=== PATIENT | female | born 1960 | race Caucasian/White ===

== ENCOUNTER 2016-09-18 10:06 | Emergency (ER) | payer OTHER ==
[~2016-09-18] VITALS: Ht 165.1 cm; Wt 81.6 kg
[2016-09-18] MEDS ORDERED: ALPRAZOLAM1 M2 PO (11:17)
[2016-09-18] MEDS ORDERED: POTASSIUM CHLO10 ME4 PO (11:17)
[2016-09-18] MEDS ORDERED: FENTANYL1 EAC3 TOP (11:18)
[2016-09-18] MEDS ORDERED: DULOXETINE HCL30 MG PO (11:18)
[2016-09-18] MEDS ORDERED: LEVOTHYROXINE175 MCG PO (11:18)
[2016-09-18] MEDS ORDERED: PRAVASTATIN SOD20 M2 PO (11:18)
[2016-09-18] MEDS ORDERED: ADVAIR 250-501 EACH INH (11:19)
[2016-09-18] MEDS ORDERED: OXYCODONE HCL E20 MG PO ×2 (11:19→12:08)
[2016-09-18] MEDS ORDERED: METOPROLOL SUCC50 M2 PO (11:19)
[2016-09-18] MEDS ORDERED: LISINOPRIL40 M1 PO (11:19)
[2016-09-18] MEDS ORDERED: PROAIR HFA8.5 GM INH (11:20)
[2016-09-18] MEDS ORDERED: LYRICA150 M1 PO (11:20)
--- NOTE | 2016-09-18 11:42 | ED UPPER/LOWER EXTREMITY COMPL ---
History of Present Illness General Chief Complaint: Lower Extremity Problems Stated Complaint: RT ANKLE PAIN, LT KNEE PAIN Source: patient, family, old records Exam Limitations: no limitations Vital Signs & Intake/Output Vital Signs & Intake/Output Vital Signs Date Time Temp Pulse Resp B/P B/P Pulse O2 O2 Flow FiO2 Mean Ox Delivery Rate 09/18 1011 97.7 69 20 148/86 94 Room Air Allergies Coded Allergies: codeine (ITCHING 09/18/16) Reconcile Medications Albuterol Sulfate (Proair Hfa) 90 MCG HFA.AER.AD 2 PUF INH Q4-6 PRN PRN SHORTNESS OF BREATH (Reported) Alprazolam 1 MG TABLET 1 TAB PO 4 TIMES/DAY ANXIETY (Reported) Aspirin (Aspirin*) 325 MG TABLET 1 TAB PO DAILY HEART HEALTH (Reported) Duloxetine HCl 30 MG CAPSULE.DR 1 CAP PO BID UNKNOWN (Reported) Fentanyl 50 MCG/HOUR PATCH.TD72 1 PAT TOP Q3D PAIN (Reported) Fluticasone/Salmeterol (Advair 250-50 Diskus) 250 MCG-50 MCG/DOSE BLST.W.DEV 1 PUF INH BID BREATHING PROBLEMS (Reported) Levothyroxine Sodium 175 MCG TABLET 1 TAB PO DAILY AC THYROID (Reported) Lisinopril 40 MG TABLET 1 TAB PO DAILY HEART (Reported) Metoprolol Succinate 50 MG TAB.ER.24H 1 TAB PO DAILY HEART (Reported) Oxycodone HCl (Oxycodone HCl ER) 20 MG TAB.ER.12H 1 TAB PO BID PAIN (Reported ) Oxycodone HCl (Oxycodone HCl ER) 20 MG TAB.ER.12H 1 TAB PO BID pain Potassium Chloride 10 MEQ TABLET.ER 1 TAB PO DAILY SUPPLEMENT (Reported) Pravastatin Sodium 20 MG TABLET 1 TAB PO DAILY CHOLESTEROL (Reported) Pregabalin (Lyrica) 150 MG CAPSULE 1 CAP PO BID PAIN (Reported) Core Measure Meds Pre-Hospital aspirin Triage Note: PT TO ED C/O RIGHT ANKLE PAIN S/P "TWISTING IT" YESTERDAY AM. PT IS ON "WAITING LIST" FOR PAIN CLINIC. TOOK TYLENOL FOR PAIN WITH NO RELIEF. PT WAS ALSO TAKING OXYCODONE, BUT RAN OUT. DECLINING MEDS IN TRIAGE. Triage Nurses Notes Reviewed? yes Onset: 1 day Duration: day(s):, constant, continues in ED Timing: recent history Severity: moderate Pain/Injury Location: Right: Ankle. Left: Knee. Method of Injury: fall Modifying Factors: Improves With: pain medication. Worsens With: movement. Associated Symptoms: swelling, GCS 15 since, stiffness LMP (ages 10-50): post menopausal : No Patient currently breastfeeds: No HPI: 1 day prior to admission while getting up from the couch patient twisted her right ankle falling onto her left knee. She complains of pain moderate to severe nonradiating associated with decreased range of motion. She denies other injury fever chills nausea vomiting diarrhea abdominal pain chest pain shortness breath headache dysuria rash bleeding. She was prescribed OxyContin by her PMD for one week while awaiting pain management appointment next week. Past History Travel History Traveled to [place] past 21 day No Medical History Any Pertinent Medical History? 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 No Review of Systems Review of Systems Constitutional: Reports: no symptoms. EENTM: Reports: no symptoms. Respiratory: Reports: no symptoms. Cardiovascular: Reports: no symptoms. Gastrointestinal/Abdominal: Reports: no symptoms. Genitourinary: Reports: no symptoms. Musculoskeletal: Reports: see HPI, joint pain, joint swelling. Skin: Reports: no symptoms. Neurological/Psychological: Reports: no symptoms. Hematologic/Endocrine: Reports: no symptoms. Immunological: Reports: no symptoms. All Other Systems: Reviewed and Negative Physical Exam Physical Exam General Appearance: well developed/nourished, mild distress Head: atraumatic Eyes: Bilateral: PERRL, EOMI. Ears, Nose, Throat: normal pharynx, normal ENT inspection, hearing grossly normal Neck: normal inspection, supple Cardiovascular/Respiratory: regular rate/rhythm Peripheral Pulses: 4+ carotid (R), 4+ carotid (L) Back: normal inspection, normal range of motion, no vertebral tenderness Shoulder Left: normal range of motion, normal inspection Shoulder Right: normal range of motion, normal inspection Elbow Left: normal range of motion, normal inspection Elbow Right: normal range of motion, normal inspection Hand Left: normal inspection, normal range of motion Hand Right: normal inspection, normal range of motion Upper Extremity Reflexes: 2+: bicep (R), bicep (L). Leg Left: normal range of motion, normal inspection Leg Right: normal range of motion, normal inspection Hip Left: normal range of motion, normal inspection Hip Right: normal range of motion, normal inspection Knee Left: swelling, soft tissue tenderness Knee Right: normal range of motion, normal inspection Foot Left: normal inspection, normal range of motion Foot Right: normal range of motion, soft tissue tenderness, swelling Lower Extremity Reflexes: 2+: knee (R), knee (L). Neurologic/Tendon: normal sensation, normal motor functions, normal tendon functions Skin: intact, normal color, warm/dry Lymphatic: no anterior cervical zaira Progress Differential Diagnosis: contusion, dislocation, fracture, sprain Plan of Care: Orders Procedure Date/time Status XRY-KNEE COMPLETE LEFT 09/18 1100 Active XRY-ANKLE 3 OR MORE VIEWS R 09/18 1100 Active Diagnostic Imaging: Viewed by Me: Radiology Read. Discussed w/RAD: Radiology Read. Radiology Impression: Postsurgical changes of prior ORIF of the tibial pilon fracture and distal fibular fracture. No new fractures are identified, though there is poor underlying bone quality at the fracture sites due to osteopenia and significant loss of bone stock. Continued follow-up is advised if the patient experiences persistent symptoms at the ankle in order to better exclude a nondisplaced fracture superimposed upon the chronic posttraumatic deformity. Moderate degenerative arthritis in the right talocrural joint., No evidence of acute injury. Mild narrowing of the medial compartment. Trace joint effusion and possible loose body in the suprapatellar recess. Departure Departure Time of Disposition: 1205 Disposition: HOME OR SELF CARE Condition: Stable Clinical Impression Primary Impression: Moderate right ankle sprain Qualifiers: Encounter type: initial encounter Qualified Code: S93.401A - Sprain of unspecified ligament of right ankle, initial encounter Secondary Impressions: Left knee injury Qualifiers: Encounter type: initial encounter Qualified Code: S89.92XA - Unspecified injury of left lower leg, initial encounter Referrals: COLLETTE PANDYA MD (PCP/Family) Additional Instructions: Follow up with pain management as scheduled. Departure Forms: Customer Survey General Discharge Information Prescriptions: Current Visit Scripts Oxycodone HCl (Oxycodone HCl ER) 1 TAB PO BID #14 TAB
[2016-09-18] MEDS ORDERED: ASPIRIN325 M2 PO (11:47)
--- NOTE | 2016-09-18 11:52 | RADIOLOGY REPORT ---
EXAMINATION: XR ANKLE, RIGHT CLINICAL INFORMATION: Twisted right ankle. Previous fracture. COMPARISON: None TECHNIQUE: AP, lateral, and mortise views of the right ankle. FINDINGS: Bones are osteopenic. Postsurgical changes of prior ORIF of the tibial plafond are noted with anterolateral buttress plate and screw fixation construct as well as a medial plate and screw fixation construct. There is significant loss of bone stock in this region with osseous union across the remaining bone fragments. Fixation hardware at the distal fibula appears intact with at least partial osseous union at the distal fibula. No new fractures are identified. There is posttraumatic degenerative arthritis at the right ankle which is likely moderate in severity. Evaluation of the jointline is somewhat limited as due to the overlying buttress portion of the tibial fixation plate. External fixator tract is present in the calcaneus. There is mild degenerative arthritis in the [place] joint. Soft tissues are diffusely swollen. IMPRESSION: Postsurgical changes of prior ORIF of the tibial pilon fracture and distal fibular fracture. No new fractures are identified, though there is poor underlying bone quality at the fracture sites due to osteopenia and significant loss of bone stock. Continued follow-up is advised if the patient experiences persistent symptoms at the ankle in order to better exclude a nondisplaced fracture superimposed upon the chronic posttraumatic deformity. Moderate degenerative arthritis in the right talocrural joint.
--- NOTE | 2016-09-18 11:58 | RADIOLOGY REPORT ---
EXAMINATION: XR KNEE, LEFT CLINICAL INFORMATION: Fell, left knee pain. COMPARISON: None TECHNIQUE: AP, lateral, and bilateral oblique views of the left knee. FINDINGS: There is osteopenia. There is no fracture or malalignment. There may be a trace joint effusion. There is mild medial compartment narrowing. There are findings that suggest prior anterior cruciate ligament reconstruction. There may be a tiny loose body in the suprapatellar recess. IMPRESSION: No evidence of acute injury. Mild narrowing of the medial compartment. Trace joint effusion and possible loose body in the suprapatellar recess.
[2016-09-18 12:22] VITALS: BP 187/87
[2016-09-18] MEDS ORDERED: PERCOCET 5-3251 EACH PO (12:25)
== END 2016-09-18 12:25 ==
LOC: ERH 10:06
DX: S93.401A Sprain of unspecified ligament of right ankle, initial encounter (principal); S89.92XA Unspecified injury of left lower leg, initial encounter; X50.9XXA Other and unspecified overexertion or strenuous movements or postures, initial encounter; W19.XXXA Unspecified fall, initial encounter; Y93.89 Activity, other specified; Y92.9 Unspecified place or not applicable
CPT/HCPCS: 73562-LT; 73610-RT

== ENCOUNTER 2017-07-19 08:15 | Inpatient (IN) | payer OTHER ==
[~2017-07-19] VITALS: Ht 165.1 cm; Wt 77.1 kg
[~2017-07-19 08:15] MED LIST: ADVAIR 250-501 EACH INH; ALPRAZOLAM1 M2 PO; ASPIRIN325 M2 PO; DULOXETINE HCL30 MG PO; FENTANYL1 EAC3 TOP; LEVOTHYROXINE175 MCG PO; LISINOPRIL40 M1 PO; LYRICA150 M1 PO; METOPROLOL SUCC50 M2 PO; OXYCODONE HCL E20 MG PO; PERCOCET 5-3251 EACH PO; POTASSIUM CHLO10 ME4 PO; PRAVASTATIN SOD20 M2 PO; PROAIR HFA8.5 GM INH
--- NOTE | 2017-07-19 08:20 | ED GENERAL ADULT ---
History of Present Illness General Chief Complaint: ETOH/Drug Related Complaint Stated Complaint: BIBA OVERDOSE Source: EMS Exam Limitations: no limitations Vital Signs & Intake/Output Vital Signs & Intake/Output Vital Signs Date Time Temp Pulse Resp B/P B/P Pulse O2 O2 Flow FiO2 Mean Ox Delivery Rate 07/19 1815 99.2 66 12 118/60 07/19 1810 99.2 66 12 118/60 94 Nasal 3.0L Cannula 07/19 1739 98.2 65 18 138/74 97 Room Air Room Air 07/19 1650 98.8 68 18 143/77 07/19 1611 98.8 68 18 143/77 96 Nasal 3.0L Cannula 07/19 1419 99.1 69 14 150/70 99 Nasal 3.0L Cannula 07/19 1415 99.1 88 12 154/70 07/19 1218 98.4 84 18 147/84 99 Nasal 3.0L Cannula 07/19 1118 97.5 72 14 136/76 94 Nasal 2.0L Cannula 07/19 1003 95.7 80 18 130/78 98 Nasal 2.0L Cannula 07/19 0826 93.1 76 12 130/79 88 Room Air Allergies Coded Allergies: codeine (ITCHING 09/18/16) Reconcile Medications Alprazolam 1 MG TABLET 1 TAB PO 4 TIMES/DAY ANXIETY (Reported) Amlodipine Besylate 10 MG TABLET 1 TAB PO DAILY BP (Reported) Aspirin (Aspirin*) 325 MG TABLET 1 TAB PO DAILY HEART HEALTH (Reported) Duloxetine HCl 30 MG CAPSULE.DR 1 CAP PO DAILY UNKNOWN (Reported) Fluticasone Propionate (Flonase Allergy Relief) 50 MCG/ACTUATION SPRAY.SUSP 2 SPRAY NASB DAILY NASAL CONGESTION (Reported) Fluticasone/Salmeterol (Advair 250-50 Diskus) 250 MCG-50 MCG/DOSE BLST.W.DEV 1 PUF INH BID BREATHING PROBLEMS (Reported) Levothyroxine Sodium 175 MCG TABLET 1 TAB PO DAILY AC THYROID (Reported) Lidocaine 5 % ADH..PATCH 1 PAT TOP DAILY PAIN (Reported) Metoprolol Succinate 50 MG TAB.ER.24H 1 TAB PO DAILY HEART (Reported) Mometasone Furoate 0.1 % CREAM..G. 1 TITO TOP DAILY AFFECTED AREA(S) (Reported ) apply to affected area(s) Potassium Chloride 10 MEQ TABLET.ER 1 TAB PO DAILY SUPPLEMENT (Reported) Pravastatin Sodium 20 MG TABLET 1 TAB PO DAILY CHOLESTEROL (Reported) Pregabalin (Lyrica) 150 MG CAPSULE 1 CAP PO BID PAIN (Reported) Selenium Sulfide 2.25 % SHAMPOO 1 TITO TOP AD SCALP (Reported) Tramadol HCl 50 MG TABLET 1-2 TAB PO Q6H PRN PAIN (Reported) Zolpidem Tartrate 10 MG TABLET 1 TAB PO QHS SLEEP (Reported) Triage Nurses Notes Reviewed? yes Onset: Abrupt Duration: hour(s): Timing: unknown HPI: 07/19/17 The patient was seen on arrival. She is a 57-year-old female who is brought in for drug overdose. According to EMS she was using cocaine last night and then also took some Tramadol. She was found this morning unresponsive. Narcan was given and she woke up. Her saturation on arrival prior to Narcan was in the 80s. She was given 1.2 mg of Narcan in the field. She is currently awake and alert. Pupils are mydriatic. Labs are being sent. Past History Medical History Any Pertinent Medical History? 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 No Review of Systems Review of Systems Constitutional: Denies: fever. EENTM: Reports: no symptoms. Respiratory: Reports: no symptoms. Cardiovascular: Denies: chest pain. GI: Reports: no symptoms. Genitourinary: Reports: no symptoms. Musculoskeletal: Reports: no symptoms. Skin: Denies: rash. Neurological/Psychological: Reports: confusion. Hematologic/Endocrine: Reports: no symptoms. Immunologic/Allergic: Reports: no symptoms. Physical Exam Physical Exam General Appearance: anxious, severe distress Head: atraumatic, mydriatic Eyes: Bilateral: PERRL, EOMI. Ears, Nose, Throat: normal pharynx Neck: normal inspection, supple Respiratory: decreased breath sounds Cardiovascular: regular rate/rhythm Peripheral Pulses: 4+ radial (R), 4+ radial (L) Gastrointestinal: soft, non-tender Back: decreased range of motion Extremities: pedal edema Neurologic/Psych: no motor/sensory deficits Skin: pallor Core Measures ACS in differential dx? No CVA/TIA Diagnosis: No Sepsis Present: No Sepsis Focused Exam Completed? No Progress Differential Diagnoses I considered the following diagnoses in my evaluation of the patient: [Drug overdose, alcohol intoxication, head trauma.] Plan of Care: Orders Procedure Date/time Status ICU LAB BUNDLE 07/20 06 Active CBC WITHOUT DIFFERENTIAL 07/20 0600 Active PSYCHIATRIC CONSULT 07/20 UNK Active Nothing by Mouth 07/19 D Active TROPONIN LEVEL 07/19 1999 Active EKG 07/19 1999 Active NUTRITIONAL CONSULT 07/19 1907 Active Wound Care/Dressing 07/19 1853 Complete Weight 07/19 1853 Active Turn and Reposition 07/19 1853 Active Drains/Tubes 07/19 185 Complete Teach/Educate 07/19 1853 Active Skin Integrity Protocol 07/19 1853 Active Skin/Pressure Ulcer Assess (Sk 07/19 1853 Active Pain Treatment and Response 07/19 1853 Active Nutritional Intake, Monitor 07/19 1853 Active Isolation 07/19 1853 Active Patient Care Conference 07/19 1853 Active Activity/Ambulation 07/19 1853 Active VRE ACTIVE SURVIELLANCE 07/19 1846 Active ACTIVE SURVEILLANCE NARES 07/19 1846 Active LACTIC ACID 07/19 1651 Active SWALLOW EVALUATION 07/19 1439 Active TRC EVALUATION (GEN) 07/19 1439 Active OXYGEN SETUP (GEN) 07/19 1439 Active Pathway - chart 07/19 1439 Active House Staff 07/19 1439 Active CULTURE,URINE 07/19 1439 Active BLOOD CULTURE 07/19 1439 Active URINALYSIS 07/19 1439 Complete TROPONIN LEVEL 07/19 1351 Complete PARTIAL THROMBOPLASTIN TIME 07/19 1351 Complete PROTHROMBIN TIME 07/19 1351 Complete LACTIC ACID 07/19 1351 Complete Add-on Test (ER Only) 07/19 1310 Active Julio, Insertion/Removal/Asses 07/19 1224 Active Patient Data 07/19 1157 Active ED Holding Orders 07/19 1156 Active Admit to inpatient 07/19 1156 Active Vital Signs 07/19 1156 Active Code Status 07/19 1156 Active CREATINE PHOSPHOKINASE 07/19 0832 Complete Intake & Output 07/19 0826 Active URINE DRUG SCREEN FOR ER ONLY 07/19 0821 Complete ACETOMINOPHEN 07/19 820 Complete TROPONIN LEVEL 07/19 820 Complete SALICYLATE 07/19 820 Complete ETHANOL 07/19 820 Complete COMPREHENSIVE METABOLIC PANEL 07/19 820 Complete CBC WITHOUT DIFFERENTIAL 07/19 820 Complete EKG 07/19 820 Active VTE Mechanical Prophylaxis 07/19 UNK Active Seizure Precautions 07/19 UNK Active Precautions 07/19 UNK Active Mele Coma Scale 07/19 UNK Active CIWA 07/19 UNK Active Current Medications Sig/Regulo Start time Last Medication Dose Stop Time Status Admin Aspirin 325 MG DAILY 07/20 1000 AC (Aspirin) Duloxetine HCl 30 MG DAILY 07/20 1000 AC (Cymbalta) Enoxaparin Sodium 40 MG DAILY 07/20 1000 AC (Lovenox) Lidocaine 1 PAT DAILY 07/20 1000 AC (Lidoderm) Metoprolol Succinate 50 MG DAILY 07/20 1000 AC (Toprol Xl) Pravastatin Sodium 20 MG DAILY 07/20 1000 AC (Pravachol) Levothyroxine Sodium 0.175 MG DAILY AC 07/20 0700 AC (Synthroid) Ampicillin Sodium/ 3,000 MG Q6H 07/19 1500 AC 07/19 Sulbactam Sodium 1639 (Unasyn) Sodium Chloride 100 ML (Normal Saline 0.9%) Amlodipine Besylate 10 MG DAILY 07/19 1452 AC (Norvasc) Acetaminophen 1,000 MG Q6P PRN 07/19 1430 AC (Ofirmev) Dextrose/Sodium 1,000 ML .[id number] 07/19 1430 AC 07/19 Chloride 1453 (D5-Normal Saline) Laboratory Tests 07/19/17 1355: Lactic Acid 0.7, Troponin I 0.04, PT 11.3, INR 1.08, APTT 33 07/19/17 0850: Urine Opiates Screen > 4000.00 H, Methadone Screen 47, Barbiturate Screen < 60, Ur Phencyclidine Scrn 8.70, Amphetamines Screen < 100, U Benzodiazepines Scrn > 800.0 H, Urine Cocaine Screen > 1000.0 H, Urine Cannabis Screen 14.50, Urinalysis LIGHT H, Urine Color YEL, Urine Clarity CLEAR, Urine pH 6.0, Ur Specific [place] >= 1.030, Urine Protein 100 H, Urine Ketones NEG, Urine Nitrite NEG, Urine Bilirubin NEG, Urine Urobilinogen 0.2, Ur Leukocyte Esterase NEG, Ur Microscopic SEDIMENT EXAMINED, Urine RBC RARE, Ur Epithelial Cells RARE, Urine Bacteria FEW H, Hyaline Casts RARE H, Urine Hemoglobin TRACE-INTACT, Urine Glucose NEG 07/19/17 0832: Anion Gap 14, Estimated GFR 46 L, BUN/Creatinine Ratio 25.8 H, Glucose 128 H, Calcium 9.4, Total Bilirubin 0.3, AST 20, ALT 18, Alkaline Phosphatase 92, Creatine Kinase 94, Troponin I < 0.01, Total Protein 8.3 H, Albumin 4.5, Globulin 3.8, Albumin/Globulin Ratio 1.2, CBC w Diff NO MAN DIFF REQ, RBC 4.74, MCV 91.5, MCH 30.2, MCHC 33.0, RDW 14.9 H, MPV 8.2, Gran % 82.3 H, Lymphocytes % 12.1 L, Monocytes % 3.9, Eosinophils % 1.6, Basophils % 0.1, Absolute Granulocytes 12.5 H, Absolute Lymphocytes 1.8, Absolute Monocytes 0.6, Absolute Eosinophils 0.2, Absolute Basophils 0, Salicylates < 1.0, Acetaminophen < 10.0 L, Serum Alcohol < 10.0 Microbiology 07/19 181 UPPER RESP: Surveillance Culture - RECD 07/19 1815 GI: Surveillance Culture - RECD 07/19 1504 BLOOD: Blood Culture - RECD 07/19 1452 BLOOD: Blood Culture - RECD 07/19 1224 URINE ROUT: Urine Culture - CAN Cancelled: DUPLICATE - SEE [id number] 07/19 0850 URINE ROUT: Urine Culture - RECD Initial ED EKG: NSR Departure Departure Disposition: STILL A PATIENT Condition: Stable Clinical Impression Primary Impression: Overdose Secondary Impressions: Hypothermia, Respiratory failure after trauma Referrals: Ariel Washburn MD (PCP/Family) Departure Forms: Customer Survey General Discharge Information Admission Note Spoke With: Ariel Washburn MD Documentation of Exam: Documentation of any treatments & extenuating circumstances including Concerns Regarding Discharge (functional status, medication knowledge or non-compliance, living conditions, etc.) that warrant an admission rather than observation: [The patient needs admission for external rewarming, neuro status checks every 6 hours, observation of O2 saturation, likely repeated doses of Narcan] 07/19/17 4 pm Discussed with poison control agrees with the plan of care Give IV fluids, monitor CK, monitor neuro status monitor respiratory status PATIENT: MARTY HOLDER PRESENT AGE: 57 PATIENT ACCOUNT NO: [id number] : 60 LOCATION: [facility] ORDERING PHYSICIAN: Jesse Barcenas DO SERVICE DATE: 07/19/17 EXAM TYPE: RAD - XRY-PORTABLE CHEST XRAY EXAMINATION: XR PORTABLE CHEST CLINICAL INFORMATION: Status post overdose COMPARISON: Chest radiograph from 06/23/2008 TECHNIQUE: Portable frontal view of the chest was obtained. FINDINGS: There are bibasilar linear opacities. No consolidative opacity. No edema. No pleural effusion or pneumothorax. Cardiac size mildly prominent, possibly secondary to technique. Surgical material projects over the neck. Osseous structures are unremarkable. IMPRESSION: Bibasilar linear opacities favored to represent atelectasis. Aspiration can have a similar appearance. DICTATED BY: Karon Bui MD DATE/TIME DICTATED:07/19/17957 GRAPHIC ENGINEER:HANG DATE/TIME TRANSCRIBED:07/19/17957 CONFIDENTIAL, DO NOT COPY WITHOUT APPROPRIATE AUTHORIZATION. <Electronically signed in Other Vendor System> SIGNED BY: Karon Bui MD 07/19/17 1005 Critical Care Note Critical Care Note Critical Care Time: 30-74 min
[2017-07-19 09:17] LABS: ABSOLUTE BASOPHIL COUNT 0 /CUMM (0.0-0.2); ABSOLUTE EOSINOPHIL COUNT 0.2 /CUMM (0.0-0.7); ABSOLUTE GRANULOCYTE CT 12.5 /CUMM (1.4-6.5); ABSOLUTE LYMPH COUNT 1.8 /CUMM (1.2-3.4); ABSOLUTE MONOCYTE COUNT 0.6 /CUMM (0.10-0.60); BASOPHIL % 0.1 % (0.0-2.0); EOSINOPHIL % 1.6 % (0-5); GRANULOCYTE % 82.3 % (42.2-75.2); HEMATOCRIT 43.4 % (37-47); MEAN CORPUSCULAR HGB 30.2 PG (27.0-31.0); MEAN CORPUSCULAR VOLUME 91.5 FL (81.0-99.0); MEAN PLATELET VOLUME 8.2 FL (7.4-10.4); PLATELET COUNT 329 /CUMM (130-400); RBC DISTRIBUTION WIDTH 14.9 % (11.5-14.5); RED BLOOD CELL CT 4.74 /CUMM (4.20-5.40); WHITE BLOOD CELL COUNT 15.1 /CUMM (4.8-10.8)
--- NOTE | 2017-07-19 10:05 | RADIOLOGY REPORT ---
EXAMINATION: XR PORTABLE CHEST CLINICAL INFORMATION: Status post overdose COMPARISON: Chest radiograph from 06/23/2008 TECHNIQUE: Portable frontal view of the chest was obtained. FINDINGS: There are bibasilar linear opacities. No consolidative opacity. No edema. No pleural effusion or pneumothorax. Cardiac size mildly prominent, possibly secondary to technique. Surgical material projects over the neck. Osseous structures are unremarkable. IMPRESSION: Bibasilar linear opacities favored to represent atelectasis. Aspiration can have a similar appearance.
[2017-07-19] MEDS ORDERED: TRAMADOL HCL50 M1 PO (13:19)
[2017-07-19] MEDS ORDERED: AMLODIPINE BESY10 M1 PO (13:19)
[2017-07-19] MEDS ORDERED: ZOLPIDEM TARTRA10 M1 PO (13:19)
[2017-07-19] MEDS ORDERED: LIDOCAINE1 EACH TOP (13:20)
[2017-07-19] MEDS ORDERED: FLONASE ALLERG9.9 ML NASB (13:21)
[2017-07-19] MEDS ORDERED: MOMETASONE FURO45 GM TOP (13:21)
[2017-07-19] MEDS ORDERED: SELENIUM SULFI180 ML TOP (13:21)
[2017-07-19 14:15] VITALS: BP 154/70
[2017-07-19 14:15] LABS: PT 11.3 SEC (9.4-12.5); PTT 33 SEC (25-37)
--- NOTE | 2017-07-19 14:21 | History & Physical ---
See Addendum General Information and HPI History of Present Illness: 57 year old woman with past medical history of fibromyalgia, osteoarthritis, hypertension, hypothyroidism secondary graves disease s/p thyroidectomy, depression, and anxiety simi in by ambulance after being found unresponsive. Collateral information from EMS reveals that patient used cocaine last evening and took "some tramadol". A bottle was found that was filled on 07/10/17 for 90 tablets had only "20 tablets" left in it. Patient was given narcan in the field and became minimally responsive. Patient is somnolent / lethargic and not responding to verbal stimuli. She is minimally responsive to noxious stimuli. Subjective complaints and review of systems are unobtainable. Allergies/Medications Allergies: Coded Allergies: codeine (ITCHING 09/18/16) Home Med list Alprazolam 1 MG TABLET 1 TAB PO 4 TIMES/DAY ANXIETY (Reported) Amlodipine Besylate 10 MG TABLET 1 TAB PO DAILY BP (Reported) Aspirin (Aspirin*) 325 MG TABLET 1 TAB PO DAILY HEART HEALTH (Reported) Duloxetine HCl 30 MG CAPSULE.DR 1 CAP PO DAILY UNKNOWN (Reported) Fluticasone Propionate (Flonase Allergy Relief) 50 MCG/ACTUATION SPRAY.SUSP 2 SPRAY NASB DAILY NASAL CONGESTION (Reported) Fluticasone/Salmeterol (Advair 250-50 Diskus) 250 MCG-50 MCG/DOSE BLST.W.DEV 1 PUF INH BID BREATHING PROBLEMS (Reported) Levothyroxine Sodium 175 MCG TABLET 1 TAB PO DAILY AC THYROID (Reported) Lidocaine 5 % ADH..PATCH 1 PAT TOP DAILY PAIN (Reported) Metoprolol Succinate 50 MG TAB.ER.24H 1 TAB PO DAILY HEART (Reported) Mometasone Furoate 0.1 % CREAM..G. 1 TITO TOP DAILY AFFECTED AREA(S) (Reported ) apply to affected area(s) Potassium Chloride 10 MEQ TABLET.ER 1 TAB PO DAILY SUPPLEMENT (Reported) Pravastatin Sodium 20 MG TABLET 1 TAB PO DAILY CHOLESTEROL (Reported) Pregabalin (Lyrica) 150 MG CAPSULE 1 CAP PO BID PAIN (Reported) Selenium Sulfide 2.25 % SHAMPOO 1 TITO TOP AD SCALP (Reported) Tramadol HCl 50 MG TABLET 1-2 TAB PO Q6H PRN PAIN (Reported) Zolpidem Tartrate 10 MG TABLET 1 TAB PO QHS SLEEP (Reported) Past History Travel History Traveled to [place] past 21 day No Medical History Neurological: NONE EENT: NONE Cardiovascular: NONE Respiratory: NONE Gastrointestinal: NONE Hepatic: NONE Renal: NONE Musculoskeletal: falls, fibromyalgia, fracture, osteoarthritis Psychiatric: NONE Endocrine: NONE Blood Disorders: NONE Cancer(s): NONE 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 Exam & Diagnostic Data Last 24 Hrs of Vital Signs/I&O Vital Signs Date Time Temp Pulse Resp B/P B/P Pulse O2 O2 Flow FiO2 Mean Ox Delivery Rate 07/19 1419 99.1 69 14 150/70 99 Nasal 3.0L Cannula 07/19 1415 99.1 88 12 154/70 07/19 1218 98.4 84 18 147/84 99 Nasal 3.0L Cannula 07/19 1118 97.5 72 14 136/76 94 Nasal 2.0L Cannula 07/19 1003 95.7 80 18 130/78 98 Nasal 2.0L Cannula 07/19 0826 93.1 76 12 130/79 88 Room Air Intake & Output 07/19 1600 07/19 0800 07/19 0000 Intake Total 1020 Output Total 300 Balance 720 Intake, IV 1020 Output, Urine 300 Patient 75.296 kg Weight Weight Reported by Patient Measurement Method Physical Exam General Appearance somnolent, unresponsive, no acute distress Skin No Rashes, No Breakdown, No Significant Lesion Skin Temp/Moisture Exam: Cool/Dry Sepsis Skin Exam (color): Normal for Ethnicity HEENT Atraumatic, Mucous Membr. moist/pink, Pupils dilated 5mm bilaterall and responsive to light Neck Supple Cardiovascular Regular Rate, Normal S1, Normal S2, No Murmurs Lungs diminished bibasilar airflow Abdomen Normal Bowel Sounds, Soft, No Tenderness, No Hepatospenomegaly Neurological Normal Tone, Somnolent, lethargic, Limited exam Extremities No Clubbing, No Cyanosis, No Edema, Normal Pulses, No Tenderness/ Swelling Vascular Normal Pulses, Pulses Symmetrical Sepsis Peripheral Pulse Location: Radial Sepsis Peripheral Pulse Exam: Normal Sepsis Cap Refill Exam: <2 Sec Last 24 Hrs of Labs/Alexis: Laboratory Tests 07/19/17 1355: Lactic Acid 0.7, Troponin I 0.04, PT 11.3, INR 1.08, APTT 33 07/19/17 0850: Urine Opiates Screen > 4000.00 H, Methadone Screen 47, Barbiturate Screen < 60, Ur Phencyclidine Scrn 8.70, Amphetamines Screen < 100, U Benzodiazepines Scrn > 800.0 H, Urine Cocaine Screen > 1000.0 H, Urine Cannabis Screen 14.50, Urine Color Pending, Urine Clarity Pending, Urine pH Pending, Ur Specific [place] Pending, Urine Protein Pending, Urine Ketones Pending, Urine Nitrite Pending, Urine Bilirubin Pending, Urine Urobilinogen Pending, Ur Leukocyte Esterase Pending, Ur Microscopic Pending, Urine Hemoglobin Pending, Urine Glucose Pending 07/19/17 0832: Anion Gap 14, Estimated GFR 46 L, BUN/Creatinine Ratio 25.8 H, Glucose 128 H, Calcium 9.4, Total Bilirubin 0.3, AST 20, ALT 18, Alkaline Phosphatase 92, Creatine Kinase 94, Troponin I < 0.01, Total Protein 8.3 H, Albumin 4.5, Globulin 3.8, Albumin/Globulin Ratio 1.2, CBC w Diff NO MAN DIFF REQ, RBC 4.74, MCV 91.5, MCH 30.2, MCHC 33.0, RDW 14.9 H, MPV 8.2, Gran % 82.3 H, Lymphocytes % 12.1 L, Monocytes % 3.9, Eosinophils % 1.6, Basophils % 0.1, Absolute Granulocytes 12.5 H, Absolute Lymphocytes 1.8, Absolute Monocytes 0.6, Absolute Eosinophils 0.2, Absolute Basophils 0, Salicylates < 1.0, Acetaminophen < 10.0 L, Serum Alcohol < 10.0 Microbiology 07/19 1504 BLOOD: Blood Culture - RECD 07/19 1452 BLOOD: Blood Culture - RECD 07/19 1224 URINE ROUT: Urine Culture - CAN Cancelled: DUPLICATE - SEE [id number] 07/19 0850 URINE ROUT: Urine Culture - RECD Diagnostic Data EKG Results NSR CXR Results IMPRESSION: Bibasilar linear opacities favored to represent atelectasis. Aspiration can have a similar appearance. Assessment/Plan Assessment: 57 year old woman with multiple medical problems significant for anxiety, depression brought in by ambulance after being found unresponsive that improved with narcan. Poison control was contacted from the ED for which they reportedly agreed with medical management of presumed polysubstance overdose with urine toxicology positive for opiates, benzos, and cocaine. She remains somnolent and lethargic despite multiple doses of narcan. She is to be kept NPO for concer of aspiration with unasyn empirically started. Psychiatry consult is placed for concern of SI. Patient may require a safety monitor for SI when she becomes more alert. She meets sepsis criteria through leukocytosis and hypothermia. Problem List -Polysubstance overdose: benzo, opiate, cocaine -Possible suicide attempt -Acute Hypoxic Respiratory Failure -Probable Aspiration Pneumonia -Sepsis -Fibromyalgia -Osteoarthritis -Hypothyroidism -Depression -Anxiety -Peripheral Vascular Disease Plan -ICU -Aspiration /Fall / Seizure precautions -CIWA -Neurochecks -Consider patient safety monitor when awake for SI -TRC with nebs PRN -Supplemental oxygen, goal > 92%, taper as tolerated -Narcan PRN for respiratory distress, utilize narcan drip if necessary -D5NS @ 75 mL/hr -Unasyn 3 g IV Q6H -Hold alprazolam for sedation, restart as tolerated/instructed by psych -Continue home meds: pravastatin, cymbalta, aspirin, levothyroxine, amlodipine, metoprolol -Consult with psychiatry for overdose with possible SI -Follow up cultures & sensitivites -Swallow evaluation -Pain control with acetaminophen and lidocaine -NPO pending swallow evaluation -DVT PPx with lovenox -FULL CODE As Ranked By This Provider Problem List: 1. Overdose Core Measures/Misc (02/09) Acute Coronary Syndrome ACS Diagnosis: No Congestive Heart Failure Congestive Heart Failure Diagnosis No Cerebrovascular Accident CVA/TIA Diagnosis: No VTE (View Protocol) VTE Risk Factors Age>40 No Mechanical VTE Prophylaxis d/t N/A MechProphylax Ordered No VTE Pharm Prophylaxis d/t NA PharmProphylax ordered Sepsis (View protocol) Sepsis Present: Yes
--- NOTE | 2017-07-19 16:55 | Admission Certification ---
Admission Certification Certification Statement - As attending physician, I certify that at the time of - admission, based on clinical presentation, severity of - symptoms, need for further diagnostic testing and - therapeutic interventions, and risk of adverse outcomes - without in-hospital treatment, in my clinical assessment, - this patient requires an acute hospital stay for a minimum - of two nights or longer. I have also considered psychsocial - factors such as support system, advanced age, financial - issues, cognitive issues, and failed out-patient treatments, - past re-admission history, safety of patient, and lack of - compliance as applicable. Specific rationale supporting this admission is: Tramadol overdose. Change in mental status and cocaine use acute hypoxic respiratory failure probable aspiration pneumonia
--- NOTE | 2017-07-19 17:00 | PN- Att Addend ---
Attending Addendum Attending Brief Note 57-year-old white female with many comorbidities. He was found unresponsive earlier today when the paramedics went to evaluate the patient found out that she may have had cocaine the night before also found a bottle of tramadol only 20 pills left for bottle of 120. Patient was given Narcan with some response comes to the emergency room responds to verbal stimuli. Was found to have cocaine in her system, benzodiazepines in her system and other drugs her chest x -ray shows some atelectasis and possible aspiration pneumonia her temperature was low in the emergency room at first very patient will be admitted may need psych evaluation to see if the overdose was intentional also monitor temperature treat accordingly use antibiotics case was discussed with resident. Current Medications Sig/Regulo Start time Last Medication Dose Route Stop Time Status Admin Acetaminophen 1,000 MG Q6P PRN 07/19 1430 AC IV Amlodipine Besylate 10 MG DAILY 07/19 1452 AC PO Ampicillin Sodium/ 0 .STK-MED ONE 07/19 1648 DC Sulbactam Sodium .ROUTE Ampicillin Sodium/ 3,000 MG Q6H 07/19 1500 AC 07/19 Sulbactam Sodium IV 1639 Sodium Chloride 100 ML Aspirin 325 MG DAILY 07/20 1000 AC PO Dextrose/Sodium 1,000 ML .[id number] 07/19 1430 AC 07/19 Chloride IV 1453 Duloxetine HCl 30 MG DAILY 07/20 1000 AC PO Enoxaparin Sodium 40 MG DAILY 07/20 1000 AC SC Levothyroxine Sodium 0.175 MG DAILY AC 07/20 0700 AC PO Lidocaine 1 PAT DAILY 07/20 1000 AC EXT Metoprolol Succinate 50 MG DAILY 07/20 1000 AC PO Naloxone HCl 1 MG ONCE ONE 07/19 1130 DC 07/19 IV 07/19 1131 1128 Naloxone HCl 0 .STK-MED ONE 07/19 1129 DC .ROUTE Pravastatin Sodium 20 MG DAILY 07/20 1000 AC PO Sodium Chloride 1,000 ML BOLUS ONE 07/19 0830 DC 07/19 IV 07/19 0929 0834 Laboratory Tests 07/19/17 1355: Lactic Acid 0.7, Troponin I 0.04, PT 11.3, INR 1.08, APTT 33 07/19/17 0850: Urine Opiates Screen > 4000.00 H, Methadone Screen 47, Barbiturate Screen < 60, Ur Phencyclidine Scrn 8.70, Amphetamines Screen < 100, U Benzodiazepines Scrn > 800.0 H, Urine Cocaine Screen > 1000.0 H, Urine Cannabis Screen 14.50, Urinalysis LIGHT H, Urine Color YEL, Urine Clarity CLEAR, Urine pH 6.0, Ur Specific [place] >= 1.030, Urine Protein 100 H, Urine Ketones NEG, Urine Nitrite NEG, Urine Bilirubin NEG, Urine Urobilinogen 0.2, Ur Leukocyte Esterase NEG, Ur Microscopic SEDIMENT EXAMINED, Urine RBC RARE, Ur Epithelial Cells RARE, Urine Bacteria FEW H, Hyaline Casts RARE H, Urine Hemoglobin TRACE-INTACT, Urine Glucose NEG 07/19/17 0832: Anion Gap 14, Estimated GFR 46 L, BUN/Creatinine Ratio 25.8 H, Glucose 128 H, Calcium 9.4, Total Bilirubin 0.3, AST 20, ALT 18, Alkaline Phosphatase 92, Creatine Kinase 94, Troponin I < 0.01, Total Protein 8.3 H, Albumin 4.5, Globulin 3.8, Albumin/Globulin Ratio 1.2, CBC w Diff NO MAN DIFF REQ, RBC 4.74, MCV 91.5, MCH 30.2, MCHC 33.0, RDW 14.9 H, MPV 8.2, Gran % 82.3 H, Lymphocytes % 12.1 L, Monocytes % 3.9, Eosinophils % 1.6, Basophils % 0.1, Absolute Granulocytes 12.5 H, Absolute Lymphocytes 1.8, Absolute Monocytes 0.6, Absolute Eosinophils 0.2, Absolute Basophils 0, Salicylates < 1.0, Acetaminophen < 10.0 L, Serum Alcohol < 10.0
[2017-07-19 18:10] VITALS: BP 118/60
[2017-07-19 18:15] VITALS: BP 118/60
[2017-07-19 20:00] VITALS: BP 120/70
[2017-07-19 22:00] VITALS: BP 128/66
[2017-07-20] VITALS (10 sets, daily range): BP systolic 126–150; BP diastolic 60–80
[2017-07-20 05:11] LABS: ABSOLUTE BASOPHIL COUNT 0 /CUMM (0.0-0.2); ABSOLUTE EOSINOPHIL COUNT 0 /CUMM (0.0-0.7); ABSOLUTE GRANULOCYTE CT 7.6 /CUMM (1.4-6.5); ABSOLUTE LYMPH COUNT 1.4 /CUMM (1.2-3.4); ABSOLUTE MONOCYTE COUNT 0.7 /CUMM (0.10-0.60); BASOPHIL % 0.3 % (0.0-2.0); EOSINOPHIL % 0.5 % (0-5); GRANULOCYTE % 78.3 % (42.2-75.2); MEAN CORPUSCULAR HGB 30.2 PG (27.0-31.0); MEAN CORPUSCULAR HGB CONC 33.4 G/DL (33.0-37.0); MEAN CORPUSCULAR VOLUME 90.4 FL (81.0-99.0); MEAN PLATELET VOLUME 8.4 FL (7.4-10.4); PLATELET COUNT 254 /CUMM (130-400); RBC DISTRIBUTION WIDTH 14.5 % (11.5-14.5); RED BLOOD CELL CT 4.12 /CUMM (4.20-5.40); WHITE BLOOD CELL COUNT 9.7 /CUMM (4.8-10.8)
[2017-07-20 05:22] LABS: HEMATOCRIT 37.3 % (37-47)
--- NOTE | 2017-07-20 08:33 | PN- Resident CRCU ---
Subjective HPI/CRCU Issues: Seen and examined patient. Alert and awake today complaining of dizziness. Feels like she is moving in relation to the room. Denies weakness numbness tingling of extremities or difficulty speaking. Denies fever, chest pain, shortness of breath, abdominal pain. -Polysubstance overdose: benzo, opiate, cocaine -Possible suicide attempt -Acute Hypoxic Respiratory Failure -Probable Aspiration Pneumonia -Sepsis 24 Hour Events: Night events reported Afebrile overnight Objective Vital Signs & I&O Last 8 Hrs of Vitals and I&O: Intake & Output 07/20 1600 07/20 0800 07/20 0000 Intake Total 625 475 Output Total 435 1320 Balance 190 -845 Intake, IV 625 475 Output, Urine 435 1320 Patient 170 lb Weight Weight Bed scale Measurement Method Laboratory Tests 07/20 165 Chemistry Sodium (137 - 145 mmol/L) 141 Potassium (3.5 - 5.1 mmol/L) 3.7 Chloride (98 - 107 mmol/L) 106 Carbon Dioxide (22 - 30 mmol/L) 27 Anion Gap (5 - 16) 7 BUN (7 - 17 mg/dL) 14 Creatinine (0.5 - 1.0 mg/dL) 0.8 Estimated GFR (>60 ml/min) > 60 Glucose (65 - 99 mg/dL) 98 Lactic Acid Cancelled Calcium (8.4 - 10.2 mg/dL) 8.5 Phosphorus (2.5 - 4.5 mg/dL) 3.1 Magnesium (1.6 - 2.3 mg/dL) 1.8 Total Bilirubin (0.2 - 1.3 mg/dL) 0.8 AST (14 - 36 U/L) 42 H ALT (9 - 52 U/L) 26 Creatine Kinase (30 - 135 U/L) 1199 H Troponin I (< 0.11 ng/ml) 0.04 Albumin (3.5 - 5.0 g/dL) 3.3 L Hematology CBC w Diff NO MAN DIFF REQ WBC (4.8 - 10.8 /CUMM) 9.7 RBC (4.20 - 5.40 /CUMM) 4.12 L Hgb (12.0 - 16.0 G/DL) 12.5 Hct (37 - 47 %) 37.3 MCV (81.0 - 99.0 FL) 90.4 MCH (27.0 - 31.0 PG) 30.2 MCHC (33.0 - 37.0 G/DL) 33.4 RDW (11.5 - 14.5 %) 14.5 Plt Count (130 - 400 /CUMM) 254 MPV (7.4 - 10.4 FL) 8.4 Gran % (42.2 - 75.2 %) 78.3 H Lymphocytes % (20.5 - 51.1 %) 14.2 L Monocytes % (1.7 - 9.3 %) 6.7 Eosinophils % (0 - 5 %) 0.5 Basophils % (0.0 - 2.0 %) 0.3 Absolute Granulocytes (1.4 - 6.5 /CUMM) 7.6 H Absolute Lymphocytes (1.2 - 3.4 /CUMM) 1.4 Absolute Monocytes (0.10 - 0.60 /CUMM) 0.7 H Absolute Eosinophils (0.0 - 0.7 /CUMM) 0 Absolute Basophils (0.0 - 0.2 /CUMM) 0 07/19 1355 Chemistry Lactic Acid (0.7 - 2.1 mmol/L) 0.7 Troponin I (< 0.11 ng/ml) 0.04 Coagulation PT (9.4 - 12.5 SEC) 11.3 INR (0.90 - 1.19) 1.08 APTT (25 - 37 SEC) 33 Microbiology Date/Time Procedure - Status Source Growth 07/19 1814 Surveillance Culture - RECD UPPER RESP 07/19 181 Surveillance Culture - RECD GI 07/19 1504 Blood Culture - RECD BLOOD 07/19 1452 Blood Culture - RECD BLOOD 07/19 1224 Urine Culture - CAN URINE ROUT Cancelled: DUPLICATE - SEE [id number] Exam General Appearance: alert, awake, mild distress Neck: supple Respiratory: rhonchi, pain on palpation, left upper chest. Cardiovascular: regular rate/rhythm Gastrointestinal: normal bowel sounds, soft, non-tender Extremities: no edema Current Medications: Current Medications Sig/Regulo Start time Last Medication Dose Route Stop Time Status Admin Acetaminophen 1,000 MG Q6P PRN 07/19 1430 AC IV Albuterol Sulfate 3 ML Q4P PRN 07/19 2130 AC INH Amlodipine Besylate 10 MG DAILY 07/19 1452 AC PO Ampicillin Sodium/ 0 .STK-MED ONE 07/19 1648 DC Sulbactam Sodium .ROUTE Ampicillin Sodium/ 3,000 MG Q6H 07/19 1500 AC 07/20 Sulbactam Sodium IV 0234 Sodium Chloride 100 ML Aspirin 325 MG DAILY 07/20 1000 AC PO Dextrose/Sodium 1,000 ML .[id number] 07/19 1430 AC 07/19 Chloride IV 1453 Duloxetine HCl 30 MG DAILY 07/20 1000 AC PO Enoxaparin Sodium 40 MG DAILY 07/20 1000 AC SC Levothyroxine Sodium 87.5 MCG DAILY 07/20 1000 AC IV Levothyroxine Sodium 0.175 MG DAILY AC 07/20 0700 DC PO Lidocaine 1 PAT DAILY 07/20 1000 AC EXT Metoprolol Succinate 50 MG DAILY 07/20 1000 AC PO Naloxone HCl 1 MG ONCE ONE 07/19 1130 DC 07/19 IV 07/19 1131 1128 Naloxone HCl 0 .STK-MED ONE 07/19 1129 DC .ROUTE Pravastatin Sodium 20 MG DAILY 07/20 1000 AC PO Impression/Plan Impression/Problem List Impression: 57 year old woman with multiple medical problems significant for hypothyroidism, anxiety, depression brought in by ambulance for episode of unresponsive that improved with narcan. Urine toxicology positive for opiates, benzos, and cocaine. Poison control was contacted by ED. Currently more awake and alert this morning. Afebrile overnight, vitals stable. Labs showing normalization of leukocytosis and increase CPK level (1199) Problem List -Polysubstance overdose: benzo, opiate, cocaine -Acute Hypoxic Respiratory Failure - Aspiration Pneumonia -Sepsis-resolved -Fibromyalgia -Osteoarthritis -Hypothyroidism -Depression -Anxiety -Peripheral Vascular Disease -elevated CPK (secondary to possible tramadol ingestion vs rhabodomyolyis) Plan -Aspiration /Fall / Seizure precautions -Continue CIGA -Neurochecks -TRC with nebs PRN -Supplemental oxygen, goal > 92%, taper as tolerated -D5NS @ 75 mL/hr will increase it to 125ml/hr, -continue Unasyn 3 g IV Q6H -Per psych she has no SI, and recomended restarting xanax at 0.5mg TID (patient is on 1mg q6 at home). She will benefit from outpatient psych counselling as well as referral to pain management -psych recommending social consult -Continue home meds: pravastatin, cymbalta, aspirin, levothyroxine, amlodipine, metoprolol -Follow up cultures & sensitivites -Swallow eval passed, will advance her to regular diet. -Pain control with acetaminophen and lidocaine -DVT PPx with lovenox -FULL CODE can be down graded to gen med today Problem List: 1. Hypothermia 2. Respiratory failure after trauma 3. Overdose Pain Ratin Pain Location: back Pain Goal: Pain 4 or less Pain Plan: restart lidocaine patch Tomorrow's Labs & Rationales: bep/lft/mag/cpk Plan DVT/Prophylaxis: pharmacological
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
--- NOTE | 2017-07-20 15:53 | PN- Att Addend ---
Attending Addendum Attending Brief Note Patient looking better she is alert and oriented 3, temp max 99 .2, rest of the vital signs are stable. No major changes on physical except that her mental status is back to baseline. Appreciate psychiatry input and recommendations Will restart Xanax at lower doses because we cannot stop it completely due to known high dose use for her anxiety. Will get a pain management consultation to decide about pain management for her chronic pain issues. Will get renal social worker to try and arrange for outpatient counseling patient probably will be able to leave the intensive care unit today. Her CK was elevated we will continue to monitor also her kidney function and continue 1 more day at least IV fluids and also the IV antibiotics for presumed aspiration pneumonia Intake & Output 07/20 1600 07/20 0400 07/19 1600 07/19 0400 07/18 1600 07/18 0400 Intake Total 482 651 2272 Output Total 435 1320 300 Balance 190 -845 720 Intake, IV 664 057 7201 Output, Urine 435 1320 300 Patient 170 lb 166 lb Weight Weight Bed scale Reported by Patient Measurement Method Current Medications Sig/Regulo Start time Last Medication Dose Route Stop Time Status Admin Acetaminophen 650 MG Q4P PRN 07/20 1515 AC PO Acetaminophen 1,000 MG Q6P PRN 07/19 1430 DC IV Albuterol Sulfate 3 ML Q4P PRN 07/19 2130 AC INH Alprazolam 0.5 MG Q8 07/20 1400 AC PO 07/27 1359 Alprazolam 0.5 MG TID 07/20 1145 DC 07/20 PO 07/27 1144 1206 Amlodipine Besylate 10 MG AT BEDTIME 07/21 2200 AC PO Amlodipine Besylate 10 MG DAILY 07/19 1452 DC 07/20 PO 1046 Ampicillin Sodium/ 0 .STK-MED ONE 07/19 1648 DC Sulbactam Sodium .ROUTE Ampicillin Sodium/ 3,000 MG Q6H 07/19 1500 AC 07/20 Sulbactam Sodium IV 1513 Sodium Chloride 100 ML Aspirin 325 MG DAILY 07/20 1000 AC 07/20 PO 1049 Dextrose/Sodium 1,000 ML .Q8H 07/19 1430 AC 07/20 Chloride IV 1206 Duloxetine HCl 30 MG DAILY 07/20 1000 AC 07/20 PO 1049 Enoxaparin Sodium 40 MG DAILY 07/20 1000 AC 07/20 SC 1049 Levothyroxine Sodium 0.125 MG DAILY AC 07/21 0700 AC PO Levothyroxine Sodium 87.5 MCG DAILY 07/20 1000 DC 07/20 IV 1033 Levothyroxine Sodium 0.175 MG DAILY AC 07/20 0700 DC PO Lidocaine 1 PAT DAILY 07/20 1000 AC 07/20 EXT 1051 Metoprolol Succinate 50 MG AT BEDTIME 07/20 2200 AC PO Metoprolol Succinate 50 MG DAILY 07/20 1000 DC PO Pravastatin Sodium 20 MG DAILY 07/20 1000 AC 07/20 PO 1049 Laboratory Tests 07/20/17 0429: Anion Gap 7, Estimated GFR > 60, Glucose 98, Calcium 8.5, Phosphorus 3.1, Magnesium 1.8, Total Bilirubin 0.8, AST 42 H, ALT 26, Creatine Kinase 1199 H, Albumin 3.3 L, CBC w Diff NO MAN DIFF REQ, RBC 4.12 L, MCV 90.4, MCH 30.2, MCHC 33.4, RDW 14.5, MPV 8.4, Gran % 78.3 H, Lymphocytes % 14.2 L, Monocytes % 6.7, Eosinophils % 0.5, Basophils % 0.3, Absolute Granulocytes 7.6 H, Absolute Lymphocytes 1.4, Absolute Monocytes 0.7 H, Absolute Eosinophils 0, Absolute Basophils 0 07/19/172009: Troponin I 0.04 07/19/17 1651: Lactic Acid Cancelled 07/19/17 1355: Lactic Acid 0.7, Troponin I 0.04, PT 11.3, INR 1.08, APTT 33 07/19/17 0850: Urine Opiates Screen > 4000.00 H, Methadone Screen 47, Barbiturate Screen < 60, Ur Phencyclidine Scrn 8.70, Amphetamines Screen < 100, U Benzodiazepines Scrn > 800.0 H, Urine Cocaine Screen > 1000.0 H, Urine Cannabis Screen 14.50, Urinalysis LIGHT H, Urine Color YEL, Urine Clarity CLEAR, Urine pH 6.0, Ur Specific [place] >= 1.030, Urine Protein 100 H, Urine Ketones NEG, Urine Nitrite NEG, Urine Bilirubin NEG, Urine Urobilinogen 0.2, Ur Leukocyte Esterase NEG, Ur Microscopic SEDIMENT EXAMINED, Urine RBC RARE, Ur Epithelial Cells RARE, Urine Bacteria FEW H, Hyaline Casts RARE H, Urine Hemoglobin TRACE-INTACT, Urine Glucose NEG 07/19/17 0832: Anion Gap 14, Estimated GFR 46 L, BUN/Creatinine Ratio 25.8 H, Glucose 128 H, Calcium 9.4, Total Bilirubin 0.3, AST 20, ALT 18, Alkaline Phosphatase 92, Creatine Kinase 94, Troponin I < 0.01, Total Protein 8.3 H, Albumin 4.5, Globulin 3.8, Albumin/Globulin Ratio 1.2, CBC w Diff NO MAN DIFF REQ, RBC 4.74, MCV 91.5, MCH 30.2, MCHC 33.0, RDW 14.9 H, MPV 8.2, Gran % 82.3 H, Lymphocytes % 12.1 L, Monocytes % 3.9, Eosinophils % 1.6, Basophils % 0.1, Absolute Granulocytes 12.5 H, Absolute Lymphocytes 1.8, Absolute Monocytes 0.6, Absolute Eosinophils 0.2, Absolute Basophils 0, Salicylates < 1.0, Acetaminophen < 10.0 L, Serum Alcohol < 10.0 Microbiology 07/20 1039 LOWER RESP: Respiratory Culture - COLB 07/20 1039 LOWER RESP: Gram Stain - COLB 07/19 181 UPPER RESP: Surveillance Culture - RECD 07/19 181 GI: Surveillance Culture - RECD 07/19 1504 BLOOD: Blood Culture - RES 07/19 1452 BLOOD: Blood Culture - RES 07/19 1224 URINE ROUT: Urine Culture - CAN Cancelled: DUPLICATE - SEE 7 07/19 0850 URINE ROUT: Urine Culture - RES Microbiology 07/20 1039 LOWER RESP: Respiratory Culture - COLB 07/20 1039 LOWER RESP: Gram Stain - COLB 07/19 1815 UPPER RESP: Surveillance Culture - RECD 07/19 1815 GI: Surveillance Culture - RECD 07/19 1504 BLOOD: Blood Culture - RES 07/19 1452 BLOOD: Blood Culture - RES 07/19 1224 URINE ROUT: Urine Culture - CAN Cancelled: DUPLICATE - SEE B57 07/19 0850 URINE ROUT: Urine Culture - RES Vital Signs Date Time Temp Pulse Resp B/P B/P Pulse O2 O2 Flow FiO2 Mean Ox Delivery Rate 07/20 1046 62 142/76 07/20 0600 59 18 126/60 07/20 0400 97.1 53 18 144/72 07/20 0400 97 Nasal 3.0L Cannula 07/20 0200 57 18 137/77 07/20 0000 96.4 54 20 140/80 07/20 0000 97 Nasal 3.0L Cannula 07/20 0000 96.4 54 20 140/80 97 Nasal 3.0L Cannula 07/19 2200 62 16 128/66 07/19 2112 Nasal 3.0L Cannula 07/19 1999 60 14 120/70 07/19 1999 95 Nasal 3.0L Cannula 07/19 1815 99.2 66 12 118/60 07/19 1815 94 Nasal 3.0L Cannula 07/19 1810 99.2 66 12 118/60 94 Nasal 3.0L Cannula 07/19 1739 98.2 65 18 138/74 97 Room Air Room Air 07/19 1650 98.8 68 18 143/77 07/19 1611 98.8 68 18 143/77 96 Nasal 3.0L Cannula
[2017-07-21 06:54] VITALS: BP 126/56
--- NOTE | 2017-07-21 07:24 | PN- Housestaff ---
Subjective Follow-up For: Polysubstance overdose/abuse Acute Hypoxic respiratory failure Possible aspiration pneumonia Left hand grasp difficulties Subjective: Patient seen and examined. She is seen lying on her side in bed talking on the phone maintained on supplemental oxygen via nasal cannula. She appears to be in no acute distress. She reports feeling much better and doesn't recall many details from when she came in. She is awake, alert, appropriate, and following commands. She is complaining of her chronic pain. She admits that she was initially followed by a pain management clinic in [place] but was discharged because of "a bunch of drugs" in her urine. She is also complaining of inability to use her left hand, which has been present for two weeks duration. Not associated with any other neurologic signs/ symptoms. No history of falls or trauma. Review of Systems Constitutional: Reports: see HPI. Objective Last 24 Hrs of Vital Signs/I&O Vital Signs Date Time Temp Pulse Resp B/P B/P Pulse O2 O2 Flow FiO2 Mean Ox Delivery Rate 07/21 0800 Nasal 1.0L Cannula 07/21 0654 60 16 126/56 97 Nasal 1.0L Cannula 07/21 0000 Nasal 1.0L Cannula 07/20 2307 97.6 78 16 130/76 95 07/20 2058 60 20 138/60 07/20 2056 95 Nasal 1.0L Cannula 07/20 1600 97.8 65 20 132/74 07/20 1600 97.8 65 20 132/74 97 Nasal 3.0L Cannula 07/20 1600 97 Nasal 3.0L Cannula 07/20 1400 70 18 150/78 07/20 1200 97.8 52 20 138/74 07/20 1046 62 142/76 Intake & Output 07/21 1600 07/21 0800 07/21 0000 Intake Total 1740 813 Output Total 950 625 Balance 790 188 Intake, IV 1140 813 Intake, Oral 600 Output, Urine 950 625 Physical Exam General Appearance: Alert, Oriented X3, Cooperative, No Acute Distress Other Physical Findings: GEN: well developed, well nourished middle aged woman in no acute distress HEENT: NCAT, PERRL, EOMI, anicteric sclera, MMM NECK: Supple, no JVD, trachea midline CARD: Normal S1/S2 w/o m/g/r; RRR PULM: diminished airflow with rales in all four lung frankel ABD: Soft, NT, ND, BS+ NEURO: Awake and alert, oriented x3, CN II-XII grossly intact EXT: Normal pulses, no cyanosis, clubbing, edema Current Medications: Current Medications Sig/Regulo Start time Last Medication Dose Route Stop Time Status Admin Acetaminophen 650 MG Q4P PRN 07/20 1515 AC PO Acetaminophen 1,000 MG Q6P PRN 07/19 1430 DC IV Albuterol Sulfate 3 ML Q4P PRN 07/19 2130 AC INH Alprazolam 0.5 MG Q8 07/20 1400 AC 07/21 PO 07/27 1359 0613 Alprazolam 0.5 MG TID 07/20 1145 DC 07/20 PO 07/27 1144 1206 Amlodipine Besylate 10 MG AT BEDTIME 07/21 2200 AC PO Amlodipine Besylate 10 MG DAILY 07/19 1452 DC 07/20 PO 1046 Ampicillin Sodium/ 3,000 MG Q6H 07/19 1500 AC 07/21 Sulbactam Sodium IV 0935 Sodium Chloride 100 ML Aspirin 325 MG DAILY 07/20 1000 AC 07/21 PO 0934 Dextrose/Sodium 1,000 ML .Q8H 07/19 1430 AC 07/21 Chloride IV 0613 Duloxetine HCl 30 MG DAILY 07/20 1000 AC 07/21 PO 0934 Enoxaparin Sodium 40 MG DAILY 07/20 1000 AC 07/20 SC 1049 Levothyroxine Sodium 0.125 MG DAILY AC 07/21 0700 AC 07/21 PO 0612 Levothyroxine Sodium 87.5 MCG DAILY 07/20 1000 DC 07/20 IV 1033 Lidocaine 1 PAT DAILY 07/20 1000 AC 07/21 EXT 0934 Metoprolol Succinate 50 MG AT BEDTIME 07/20 2200 AC 07/20 PO 2058 Metoprolol Succinate 50 MG DAILY 07/20 1000 DC PO Pravastatin Sodium 20 MG DAILY 07/20 1000 AC 07/21 PO 0935 Last 24 Hrs of Lab/Alexis Results Last 24 Hrs of Labs/Mics: Laboratory Tests 07/21/17 0605: Anion Gap 11, Estimated GFR > 60, BUN/Creatinine Ratio 10.0, Magnesium 1.7, Total Bilirubin 1.0, Direct Bilirubin 0.2, AST 36, ALT 21, Alkaline Phosphatase 79, Creatine Kinase 867 H, Total Protein 6.5, Albumin 3.5 Assessment/Plan Assessment: 57 year old woman with multiple medical problems significant for anxiety, depression brought in by ambulance after being found unresponsive that improved with narcan. Patient is awake and alert today and oriented x3. She admits to smoking marijuana recreationally and reports that "this was the first and last time this will ever happen". Psychiatry evaluated the patient yesterday and felt she did not have true suicidial ideation for which safety monitor was discontinued. She remains afebrile with improved leukocytosis on intravenous unaysn. Cultures are no growth to date. She is continue on intravenous hydration for her elevated CPK. Pain management consult is placed. She is complaining of left wrist issues, stating that she can't grasp anything. This has apparently been present for about two weeks and is not associated with any other neurologic issues or falls. Occupational therapy is to see patient and x-ray to be obtained. Problem List -Polysubstance overdose/abuse: benzo, opiate, cocaine -Acute Hypoxic Respiratory Failure -Left hand grasp weakness -Elevated CPK -Probable Aspiration Pneumonia, on Unasyn -Sepsis, improved -Fibromyalgia -Osteoarthritis -Hypothyroidism -Depression -Anxiety -Peripheral Vascular Disease Plan -ICU -Aspiration /Fall / Seizure precautions -Consider patient safety monitor when awake for SI -TRC with nebs PRN -Supplemental oxygen, goal > 92%, taper as tolerated -D5NS @ 125 mL/hr -Unasyn 3 g IV Q6H -Alprazolam increased back to 1 mg PO TID -Continue home meds: pravastatin, cymbalta, aspirin, levothyroxine, amlodipine, metoprolol -Consult with psychiatry for overdose with possible SI -Consult with pain management for pain control recommendations -Follow up cultures & sensitivites -Left wrist x-ray -Occupational therapy eval -Pain control with acetaminophen and lidocaine -Regular diet -DVT PPx with lovenox -FULL CODE Problem List: 1. Overdose Pain Ratin Pain Location: Back Pain Goal: Pain 4 or less Pain Plan: See assessment Tomorrow's Labs & Rationales: BMP, CBC
--- NOTE | 2017-07-21 10:41 | PN- Att Addend ---
Attending Addendum Attending Brief Note Patient out of the intensive care unit. Mental status back to baseline, alert and oriented 3. Still getting the IV antibiotic 1 more day for her presumed aspiration pneumonia vital signs are stable, no fever. Complaining of this pain and stiffness of one hand which was present before admission and will get an x- ray of the hand to get occupational therapy. Resident trying to arrange for the patient to be followed by pain management having a lot of difficulties due to sugars issues and previous indiscretions Intake & Output 07/21 1600 07/21 0400 07/20 1600 07/20 0400 07/19 1600 07/19 0400 Intake Total 0688 260 8235 475 1020 Output Total 850 533 5826 1320 300 Balance 791 662 8897 -845 720 Intake, IV 6381 172 9069 475 1020 Intake, Oral 600 480 Number 0 Bowel Movements Output, Urine 945 503 3801 1320 300 Patient 170 lb 166 lb Weight Weight Bed scale Reported by Patient Measurement Method Current Medications Sig/Regulo Start time Last Medication Dose Route Stop Time Status Admin Acetaminophen 650 MG Q4P PRN 07/20 1515 AC PO Acetaminophen 1,000 MG Q6P PRN 07/19 1430 DC IV Albuterol Sulfate 3 ML Q4P PRN 07/19 2130 AC INH Alprazolam 0.5 MG Q8 07/20 1400 AC 07/21 PO 07/27 1359 0613 Alprazolam 0.5 MG TID 07/20 1145 DC 07/20 PO 07/27 1144 1206 Amlodipine Besylate 10 MG AT BEDTIME 07/21 2200 AC PO Amlodipine Besylate 10 MG DAILY 07/19 1452 DC 07/20 PO 1046 Ampicillin Sodium/ 3,000 MG Q6H 07/19 1500 AC 07/21 Sulbactam Sodium IV 0935 Sodium Chloride 100 ML Aspirin 325 MG DAILY 07/20 1000 AC 07/21 PO 0934 Dextrose/Sodium 1,000 ML .Q8H 07/19 1430 AC 07/21 Chloride IV 0613 Duloxetine HCl 30 MG DAILY 07/20 1000 AC 07/21 PO 0934 Enoxaparin Sodium 40 MG DAILY 07/20 1000 AC 07/20 SC 1049 Levothyroxine Sodium 0.125 MG DAILY AC 07/21 0700 AC 07/21 PO 0612 Levothyroxine Sodium 87.5 MCG DAILY 07/20 1000 DC 07/20 IV 1033 Lidocaine 1 PAT DAILY 07/20 1000 AC 07/21 EXT 0934 Metoprolol Succinate 50 MG AT BEDTIME 07/20 2200 AC 07/20 PO 2058 Metoprolol Succinate 50 MG DAILY 07/20 1000 DC PO Pravastatin Sodium 20 MG DAILY 07/20 1000 AC 07/21 PO 0935 Laboratory Tests 07/21/17 0605: Anion Gap 11, Estimated GFR > 60, BUN/Creatinine Ratio 10.0, Magnesium 1.7, Total Bilirubin 1.0, Direct Bilirubin 0.2, AST 36, ALT 21, Alkaline Phosphatase 79, Creatine Kinase 867 H, Total Protein 6.5, Albumin 3.5 07/20/17 0429: Anion Gap 7, Estimated GFR > 60, Glucose 98, Calcium 8.5, Phosphorus 3.1, Magnesium 1.8, Total Bilirubin 0.8, AST 42 H, ALT 26, Creatine Kinase 1199 H, Albumin 3.3 L, CBC w Diff NO MAN DIFF REQ, RBC 4.12 L, MCV 90.4, MCH 30.2, MCHC 33.4, RDW 14.5, MPV 8.4, Gran % 78.3 H, Lymphocytes % 14.2 L, Monocytes % 6.7, Eosinophils % 0.5, Basophils % 0.3, Absolute Granulocytes 7.6 H, Absolute Lymphocytes 1.4, Absolute Monocytes 0.7 H, Absolute Eosinophils 0, Absolute Basophils 0 07/19/172009: Troponin I 0.04 07/19/17 1651: Lactic Acid Cancelled 07/19/17 1355: Lactic Acid 0.7, Troponin I 0.04, PT 11.3, INR 1.08, APTT 33 07/19/17 0850: Urine Opiates Screen > 4000.00 H, Methadone Screen 47, Barbiturate Screen < 60, Ur Phencyclidine Scrn 8.70, Amphetamines Screen < 100, U Benzodiazepines Scrn > 800.0 H, Urine Cocaine Screen > 1000.0 H, Urine Cannabis Screen 14.50, Urinalysis LIGHT H, Urine Color YEL, Urine Clarity CLEAR, Urine pH 6.0, Ur Specific [place] >= 1.030, Urine Protein 100 H, Urine Ketones NEG, Urine Nitrite NEG, Urine Bilirubin NEG, Urine Urobilinogen 0.2, Ur Leukocyte Esterase NEG, Ur Microscopic SEDIMENT EXAMINED, Urine RBC RARE, Ur Epithelial Cells RARE, Urine Bacteria FEW H, Hyaline Casts RARE H, Urine Hemoglobin TRACE-INTACT, Urine Glucose NEG 07/19/17 0832: Anion Gap 14, Estimated GFR 46 L, BUN/Creatinine Ratio 25.8 H, Glucose 128 H, Calcium 9.4, Total Bilirubin 0.3, AST 20, ALT 18, Alkaline Phosphatase 92, Creatine Kinase 94, Troponin I < 0.01, Total Protein 8.3 H, Albumin 4.5, Globulin 3.8, Albumin/Globulin Ratio 1.2, CBC w Diff NO MAN DIFF REQ, RBC 4.74, MCV 91.5, MCH 30.2, MCHC 33.0, RDW 14.9 H, MPV 8.2, Gran % 82.3 H, Lymphocytes % 12.1 L, Monocytes % 3.9, Eosinophils % 1.6, Basophils % 0.1, Absolute Granulocytes 12.5 H, Absolute Lymphocytes 1.8, Absolute Monocytes 0.6, Absolute Eosinophils 0.2, Absolute Basophils 0, Salicylates < 1.0, Acetaminophen < 10.0 L, Serum Alcohol < 10.0 Microbiology 07/20 1039 LOWER RESP: Respiratory Culture - COLB 07/20 1039 LOWER RESP: Gram Stain - COLB 07/19 1815 UPPER RESP: Surveillance Culture - COMP 07/19 181 GI: Surveillance Culture - COMP 07/19 1504 BLOOD: Blood Culture - RES 07/19 1452 BLOOD: Blood Culture - RES 07/19 1224 URINE ROUT: Urine Culture - CAN Cancelled: DUPLICATE - SEE 7 07/19 0850 URINE ROUT: Urine Culture - COMP Microbiology 07/20 1039 LOWER RESP: Respiratory Culture - COLB 07/20 1039 LOWER RESP: Gram Stain - COLB 07/19 1815 UPPER RESP: Surveillance Culture - COMP 07/19 1815 GI: Surveillance Culture - COMP 07/19 1504 BLOOD: Blood Culture - RES 07/19 1452 BLOOD: Blood Culture - RES 07/19 1224 URINE ROUT: Urine Culture - CAN Cancelled: DUPLICATE - SEE B57 07/19 0850 URINE ROUT: Urine Culture - COMP Vital Signs Date Time Temp Pulse Resp B/P B/P Pulse O2 O2 Flow FiO2 Mean Ox Delivery Rate 07/21 0800 Nasal 1.0L Cannula 07/21 0654 60 16 126/56 97 Nasal 1.0L Cannula 07/21 0000 Nasal 1.0L Cannula 07/20 2307 97.6 78 16 130/76 95 07/20 2058 60 20 138/60 07/20 205 95 Nasal 1.0L Cannula 07/20 1600 97.8 65 20 132/74 07/20 1600 97.8 65 20 132/74 97 Nasal 3.0L Cannula 07/20 1600 97 Nasal 3.0L Cannula 07/20 1400 70 18 150/78 07/20 1200 97.8 52 20 138/74 07/20 1046 62 142/76 Patient hypokalemic today, potassium 3.2 will be replacing.
--- NOTE | 2017-07-21 12:13 | PN- Psychiatry ---
Assessment/Plan Impression: The patient has poor recollection of the events that led to her being found on the floor. The prescription for tramadol 50 mg, #90 for 11 days was filled on . The order was for 1 or 2 tabs every 6 hours as needed for pain. With this dosing, the pills left in the vial could possibly be as few as #18, which agrees with the triage report that there were #20 left in the vial. The patient denies taking more than the prescribed amount of this medication. We understand that the patient is requiring more benzodiazepine than suggested by Dr. Balderas in his note. The reduction from her home dosing of alprazolam 1 mg PO up to 4X/day to 0.5 mg PO up to 3X/day may be too aggressive, and she likely needs more to keep her comfortable at this time. A taper can be discussed with her at the next level of care. She is considering the [facility] IOP, which she has started discussing with our general medical practitioner, Brittany Ramirez LCSW. This program will accept patients while they are on benzodiazepines. Suggestion: 1. The patient was discouraged from using non-prescribed drugs, especially in combination with her prescribed medications. Please continue to educate the patient on these hazards. 2. Please send a discharge summary to Dr. Ariel Washburn, her PCP. 3. The patient has been prescribed alprazolam 1 mg PO up to 4X/day, for a weekly total of (1 mg X 4 X 7 days) 28 mg. This may be reduced gradually over 6 months, or so. If a slower taper is agreed upon, the 28 mg weekly can be reduced by 0.5 mg per week, over about one year. Subjective Subjective: Lying calmly in bed, easily aroused. She endorses anxiety, 7/10; 10/10 is the worst. Denies hopelessness or worthlessness; endorses some helplessness and guilty feelings. Alert and oriented. Denies AH, VH and presents no bobo delusions Denies SI or HI. Review of Systems Neurological/Psychological: Reports: anxiety. Objective Last 24 Hrs of Vital Signs/I&O Vital Signs Date Time Temp Pulse Resp B/P B/P Pulse O2 O2 Flow FiO2 Mean Ox Delivery Rate 07/21 0800 Nasal 1.0L Cannula 07/21 0654 60 16 126/56 97 Nasal 1.0L Cannula 07/21 0000 Nasal 1.0L Cannula 07/20 2307 97.6 78 16 130/76 95 07/20 2057 60 20 138/60 07/20 2055 95 Nasal 1.0L Cannula 07/20 1600 97.8 65 20 132/74 07/20 1600 97.8 65 20 132/74 97 Nasal 3.0L Cannula 07/20 1600 97 Nasal 3.0L Cannula 07/20 1400 70 18 150/78 Intake & Output 07/21 1600 07/21 0800 07/21 0000 Intake Total 1740 813 Output Total 950 625 Balance 790 188 Intake, IV 1140 813 Intake, Oral 600 Output, Urine 950 625 Physical Exam: Not performed Physical Exam General Appearance: no apparent distress Neurologic/Psychiatric: oriented x 3 Current Medications: Current Medications Sig/Regulo Start time Last Medication Dose Route Stop Time Status Admin Acetaminophen 650 MG Q4P PRN 07/20 1515 AC PO Acetaminophen 1,000 MG Q6P PRN 07/19 1430 DC IV Albuterol Sulfate 3 ML Q4P PRN 07/19 2130 AC INH Alprazolam 0.5 MG Q8 07/20 1400 AC 07/21 PO 07/27 1359 1113 Alprazolam 0.5 MG TID 07/20 1145 DC 07/20 PO 07/27 1144 1206 Amlodipine Besylate 10 MG AT BEDTIME 07/21 2199 AC PO Ampicillin Sodium/ 3,000 MG Q6H 07/19 1500 AC 07/21 Sulbactam Sodium IV 0935 Sodium Chloride 100 ML Aspirin 325 MG DAILY 07/20 1000 AC 07/21 PO 0934 Dextrose/Sodium 1,000 ML .Q8H 07/19 1430 AC 07/21 Chloride IV 0613 Duloxetine HCl 30 MG DAILY 07/20 1000 AC 07/21 PO 0934 Enoxaparin Sodium 40 MG DAILY 07/20 1000 AC 07/20 SC 1049 Levothyroxine Sodium 0.125 MG DAILY AC 07/21 0700 AC 07/21 PO 0612 Lidocaine 1 PAT DAILY 07/20 1000 AC 07/21 EXT 0934 Magnesium Oxide 400 MG ONE ONE 07/21 1045 DC 07/21 PO 07/21 1046 1107 Metoprolol Succinate 50 MG AT BEDTIME 07/20 2200 AC 07/20 PO 205 Potassium Chloride 20 MEQ BID 07/21 2199 AC PO Potassium Chloride 40 MEQ ONCE ONE 07/21 1045 DC 07/21 PO 07/21 1046 1107 Pravastatin Sodium 20 MG DAILY 07/20 1000 AC 07/21 PO 0935 Results Last 24 Hrs of Labs/Mics: Laboratory Tests 07/21 604 Chemistry Sodium (137 - 145 mmol/L) 144 Potassium (3.5 - 5.1 mmol/L) 3.2 L Chloride (98 - 107 mmol/L) 103 Carbon Dioxide (22 - 30 mmol/L) 29 Anion Gap (5 - 16) 11 BUN (7 - 17 mg/dL) 5 L Creatinine (0.5 - 1.0 mg/dL) 0.5 Estimated GFR (>60 ml/min) > 60 BUN/Creatinine Ratio (7 - 25 %) 10.0 Magnesium (1.6 - 2.3 mg/dL) 1.7 Total Bilirubin (0.2 - 1.3 mg/dL) 1.0 Direct Bilirubin (< 0.4 mg/dL) 0.2 AST (14 - 36 U/L) 36 ALT (9 - 52 U/L) 21 Alkaline Phosphatase (<127 U/L) 79 Creatine Kinase (30 - 135 U/L) 867 H Total Protein (6.3 - 8.2 g/dL) 6.5 Albumin (3.5 - 5.0 g/dL) 3.5
--- NOTE | 2017-07-21 13:46 | RADIOLOGY REPORT ---
EXAMINATION: XR WRIST, LEFT CLINICAL INFORMATION: Impaired left hand grasp of 2 weeks duration. Presumptive diagnosis of nerve damage. Rule out fracture. COMPARISON: Left hand x-rays of 06/21/2013. TECHNIQUE: Left wrist 4 views; PA, lateral, oblique and ulnar deviation views were obtained. of the left wrist. FINDINGS: There is no evidence of from acute or healing fracture. No dislocation. [id number] degenerative changes are noted at the 1st carpometacarpal joint with narrowing of the joint space, subarticular sclerosis and surrounding amorphous osteophytic changes which appear to be worsened compared to last study. A small well-corticated ossific density at the tip of the ulnar styloid is a stable finding and may reflect sequela of prior trauma. Normal osseous mineralization. Scapholunate and lunotriquetral interval appear normal. IMPRESSION: No evidence of acute fracture or dislocation. [id number] osteoarthritic changes at 1st carpometacarpal joint with interval worsening when compared to previous study of 2014.
[2017-07-21 14:14] VITALS: BP 150/90
[2017-07-21 22:16] VITALS: BP 120/70
[2017-07-22 07:04] VITALS: BP 142/92
--- NOTE | 2017-07-22 07:08 | PN- Housestaff ---
Subjective Follow-up For: Polysubstance overdose/abuse Acute Hypoxic respiratory failure Possible aspiration pneumonia Left hand grasp difficulties Subjective: Patient seen and examined. She is seen sitting upright in bed resting comfortably breathing room air. She appears to be in no acute distress. She reports feeling "much better" than yesterday after her dose of alprazolam was increased to her home dose. She feels her breathing is much better and has no complaints at this time. Review of Systems Constitutional: Reports: see HPI. Objective Last 24 Hrs of Vital Signs/I&O Vital Signs Date Time Temp Pulse Resp B/P B/P Pulse O2 O2 Flow FiO2 Mean Ox Delivery Rate 07/22 0904 84 07/22 0904 94 Nasal 1.0L Cannula 07/22 0704 98.5 51 18 142/92 94 Nasal Cannula 07/22 0000 Nasal 1.0L Cannula 07/21 2216 98.0 60 20 120/70 96 07/21 2113 70 128/70 07/21 2112 68 128/70 07/21 1600 Nasal 1.0L Cannula 07/21 1414 97.8 62 18 150/90 98 Nasal 1.0L Cannula 07/21 1355 94 Nasal 1.0L Cannula Intake & Output 07/22 1600 07/22 0800 07/22 0000 Intake Total 1095 1500 Output Total Balance 1095 1500 Intake, IV 975 1000 Intake, Oral 120 500 Number 0 Bowel Movements Output, Urine Patient 77.111 kg Weight Physical Exam General Appearance: Alert, Oriented X3, Cooperative, No Acute Distress Other Physical Findings: GEN: well developed, well nourished middle aged woman in no acute distress HEENT: NCAT, PERRL, EOMI, anicteric sclera, MMM NECK: Supple, no JVD, trachea midline CARD: Normal S1/S2 w/o m/g/r; RRR PULM: diminished airflow in all lung frankel ABD: Soft, NT, ND, BS+ NEURO: Awake and alert, oriented x3, CN II-XII grossly intact EXT: Normal pulses, no cyanosis, clubbing, edema Current Medications: Current Medications Sig/Regulo Start time Last Medication Dose Route Stop Time Status Admin Acetaminophen 650 MG Q4P PRN 07/20 1515 AC PO Albuterol Sulfate 3 ML Q4P PRN 07/19 2130 AC INH Alprazolam 1 MG Q8 07/21 2200 AC 07/22 PO 07/28 2159 0547 Alprazolam 0.5 MG Q8 07/20 1400 DC 07/21 PO 03 1359 1113 Amlodipine Besylate 10 MG AT BEDTIME 07/21 2199 AC 07/21 PO 2113 Ampicillin Sodium/ 3,000 MG Q6H 07/19 1500 AC 07/22 Sulbactam Sodium IV 0303 Sodium Chloride 100 ML Aspirin 325 MG DAILY 07/20 1000 AC 07/21 PO 0934 Dextrose/Sodium 1,000 ML .Q8H 07/19 1430 DC 07/21 Chloride IV 0613 Duloxetine HCl 30 MG DAILY 07/20 1000 AC 07/21 PO 0934 Enoxaparin Sodium 40 MG DAILY 07/20 1000 AC 07/20 SC 1049 Guaifenesin 10 ML Q4P PRN 07/21 2030 AC 07/21 PO 2122 Levothyroxine Sodium 0.125 MG DAILY AC 07/21 0700 AC 07/22 PO 0548 Lidocaine 1 PAT DAILY 07/20 1000 AC 07/21 EXT 0934 Lorazepam 1 MG ONE ONE 07/21 1345 DC 07/21 IV 07/21 1346 1340 Magnesium Oxide 400 MG ONE ONE 07/21 1045 DC 07/21 PO 07/21 1046 1107 Metoprolol Succinate 50 MG AT BEDTIME 07/20 2199 AC 07/21 PO 2112 Potassium Chloride 20 MEQ BID 07/210 AC 07/21 PO 2107 Potassium Chloride 40 MEQ ONCE ONE 07/21 1045 DC 07/21 PO 07/21 1046 1107 Pravastatin Sodium 20 MG DAILY 07/20 1000 AC 07/21 PO 0935 Sodium Chloride 1,000 ML Q8H 07/21 1500 AC 07/22 IV 0548 Last 24 Hrs of Lab/Alexis Results Last 24 Hrs of Labs/Mics: Laboratory Tests 07/22/17 0630: Anion Gap 10, Estimated GFR > 60, BUN/Creatinine Ratio 6.7 L, Magnesium 1.6, Creatine Kinase 512 H, CBC w Diff NO MAN DIFF REQ, RBC 4.11 L, MCV 90.5, MCH 30.1, MCHC 33.3, RDW 13.9, MPV 8.3, Gran % 69.9, Lymphocytes % 21.8, Monocytes % 5.1, Eosinophils % 2.7, Basophils % 0.5, Absolute Granulocytes 5.6, Absolute Lymphocytes 1.7, Absolute Monocytes 0.4, Absolute Eosinophils 0.2, Absolute Basophils 0 Assessment/Plan Assessment: 57 year old woman with multiple medical problems significant for anxiety, depression brought in by ambulance after being found unresponsive that improved with narcan. Patient continues to have good mentation and is AAOx3. Left wrist x-ray demonstrated moderate/severe osteoarthritic changes at the 1st carpmetacarpal joint. She remains afebrile without leukocytosis while on unasyn for possible aspiration pneumonia. Cultures remain no growth to date with lung only demonstrating baseline diminished airflow. CPK is improving today while on IV fluids. Social work counseled patient about getting involved in outpatient care for which she was referred to [facility]. Potassium and magnesium were again found to be low were were repleated. Patient was seen and evaluated by occupational therapy whom fitted her with a splint. Unasyn in transitioned to oral keflex to complete a seven day total antibiotic course. Patient may require a referral to neurology for possible EMG for evaluation of her left hand palsy. Problem List -Polysubstance overdose/abuse: benzo, opiate, cocaine -Acute Hypoxic Respiratory Failure, resolved -Left hand grasp weakness, probable nerve palsy -Elevated CPK, improving -Probable Aspiration Pneumonia, on Unasyn -Sepsis, improved -Fibromyalgia -Osteoarthritis -Hypothyroidism -Depression -Anxiety -Peripheral Vascular Disease Plan -ICU -Aspiration /Fall / Seizure precautions -TRC with nebs PRN -NS @ 125 mL/hr -Unasyn changed to keflex -Alprazolam increased back to 1 mg PO TID -Continue home meds: pravastatin, cymbalta, aspirin, levothyroxine, amlodipine, metoprolol -Consult with psychiatry for overdose with possible SI -Consult with pain management for pain control recommendations -Follow up cultures & sensitivites -Occupational therapy eval -Pain control with acetaminophen and lidocaine -Regular diet -DVT PPx with lovenox -FULL CODE Problem List: 1. Overdose Pain Ratin Pain Location: None Pain Goal: Remain pain free Pain Plan: See assessment Tomorrow's Labs & Rationales: None
--- NOTE | 2017-07-22 07:33 | Patient Discharge Instructions ---
Discharge Instructions General Discharge Information Special Instructions: Do not overtake your alprazolam medication as discussed. Considering inrolling in [facility], information has been provided to you. Establish care with a pain management clinic. A referral has been made. Acute Coronary Syndrome Inclusion Criteria At DC or during hospital stay patient has or had the following: ACS DIAGNOSIS No Discharge Core Measures Meds if any: Prescribed or Continued at Discharge Meds if any: NOT Prescribed or Continued at Discharge Congestive Heart Failure Inclusion Criteria At DC or during hospital stay patient has or had the following: CHF DIAGNOSIS No Discharge Core Measures Meds if any: Prescribed or Continued at Discharge Meds if any: NOT Prescribed or Continued at Discharge Cerebrovascular accident Inclusion Criteria At DC or during hospital stay patient has or had the following: CVA/TIA Diagnosis No Discharge Core Measures Meds if any: Prescribed or Continued at Discharge Meds if any: NOT Prescribed or Continued at Discharge Venous thromboembolism Inclusion Criteria VTE Diagnosis No VTE Type NONE VTE Confirmed by (Test) NONE Discharge Core Measures - Per Current guidelines, there needs to be overlap - treatment for the first 5 days of Warfarin therapy. - If discharged on Warfarin prior to 5 days of - overlap therapy, the patient will need to be - assessed for post discharge needs including - *Post discharge parental anticoagulation - *Warfarin and/or parental anticoagulation education - *Follow up date to check INR post discharge At least 5 days overlap therapy as Inpatient No Meds if any: Prescribed or Continued at Discharge Note: Overlap Therapy is Warfarin and Anticoagulant Meds if any: NOT Prescribed or Continued at Discharge
[2017-07-22 08:17] LABS: ABSOLUTE BASOPHIL COUNT 0 /CUMM (0.0-0.2); ABSOLUTE EOSINOPHIL COUNT 0.2 /CUMM (0.0-0.7); ABSOLUTE GRANULOCYTE CT 5.6 /CUMM (1.4-6.5); ABSOLUTE LYMPH COUNT 1.7 /CUMM (1.2-3.4); ABSOLUTE MONOCYTE COUNT 0.4 /CUMM (0.10-0.60); BASOPHIL % 0.5 % (0.0-2.0); EOSINOPHIL % 2.7 % (0-5); GRANULOCYTE % 69.9 % (42.2-75.2); HEMATOCRIT 37.2 % (37-47); MEAN CORPUSCULAR HGB 30.1 PG (27.0-31.0); MEAN CORPUSCULAR HGB CONC 33.3 G/DL (33.0-37.0); MEAN CORPUSCULAR VOLUME 90.5 FL (81.0-99.0); MEAN PLATELET VOLUME 8.3 FL (7.4-10.4); PLATELET COUNT 293 /CUMM (130-400); RBC DISTRIBUTION WIDTH 13.9 % (11.5-14.5); RED BLOOD CELL CT 4.11 /CUMM (4.20-5.40)
[2017-07-22] MEDS ORDERED: KEFLEX500 M1 PO ×2 (09:52→10:45)
--- NOTE | 2017-07-22 10:07 | PN- Att Addend ---
Attending Addendum Attending Brief Note Looking and feeling better today and occupational therapy in to see the patient to check her he and. Her vital signs are stable no fever. No new changes on physical with her white count is normal. Discussed with resident. Was switched to by mouth antibiotics start disposition plans with referral to pain management in [place]. Tapering her Xanax. Have her use the tramadol she has at home but decrease the frequency of the use until she sees pain management Intake & Output 07/22 1600 07/22 0400 07/21 1600 07/21 0400 07/20 1600 07/20 0400 Intake Total 1095 1500 3115 813 2141 475 Output Total 600 885 7711 1320 Balance 1095 1500 2165 188 1056 -845 Intake, IV 975 1000 2015 813 1661 475 Intake, Oral 412 033 5081 480 Number 0 1 0 Bowel Movements Output, Urine 040 411 8725 1320 Patient 170 lb 170 lb Weight Weight Bed scale Measurement Method Current Medications Sig/Regulo Start time Last Medication Dose Route Stop Time Status Admin Acetaminophen 650 MG Q4P PRN 07/20 1515 AC PO Albuterol Sulfate 3 ML Q4P PRN 07/19 2130 AC INH Alprazolam 1 MG Q8 07/21 2200 AC 07/22 PO 03/ 2159 0547 Alprazolam 0.5 MG Q8 07/20 1400 DC 07/21 PO / 1359 1113 Amlodipine Besylate 10 MG AT BEDTIME 07/21 2200 AC 07/21 PO 2113 Ampicillin Sodium/ 3,000 MG Q6H 07/19 1500 AC 07/22 Sulbactam Sodium IV 0947 Sodium Chloride 100 ML Aspirin 325 MG DAILY 07/20 1000 AC 07/22 PO 0948 Dextrose/Sodium 1,000 ML .Q8H 07/19 1430 DC 07/21 Chloride IV 0613 Duloxetine HCl 30 MG DAILY 07/20 1000 AC 07/22 PO 0948 Enoxaparin Sodium 40 MG DAILY 07/20 1000 AC 07/20 SC 1049 Guaifenesin 10 ML Q4P PRN 07/21 2030 AC 07/21 PO 2122 Levothyroxine Sodium 0.125 MG DAILY AC 07/21 0700 AC 07/22 PO 0548 Lidocaine 1 PAT DAILY 07/20 1000 AC 07/22 EXT 0949 Lorazepam 1 MG ONE ONE 07/21 1345 DC 07/21 IV 07/21 1346 1340 Magnesium Oxide 400 MG ONE ONE 07/21 1045 DC 07/21 PO 07/21 1046 1107 Magnesium Sulfate 1 GM ONCE ONE 07/22 0945 AC Dextrose/Water 100 ML IV 07/22 1344 Metoprolol Succinate 50 MG AT BEDTIME 07/20 2199 AC 07/21 PO 2112 Potassium Chloride 40 MEQ ONCE ONE 07/22 0945 DC 07/22 PO 07/22 0946 0957 Potassium Chloride 20 MEQ BID 07/21 220 AC 07/22 PO 0949 Potassium Chloride 40 MEQ ONCE ONE 07/21 1045 DC 07/21 PO 07/21 1046 1107 Pravastatin Sodium 20 MG DAILY 07/20 1000 AC 07/22 PO 0948 Sodium Chloride 1,000 ML Q8H 07/21 1500 AC 07/22 IV 0548 Laboratory Tests 07/22/17 0630: Anion Gap 10, Estimated GFR > 60, BUN/Creatinine Ratio 6.7 L, Magnesium 1.6, Creatine Kinase 512 H, CBC w Diff NO MAN DIFF REQ, RBC 4.11 L, MCV 90.5, MCH 30.1, MCHC 33.3, RDW 13.9, MPV 8.3, Gran % 69.9, Lymphocytes % 21.8, Monocytes % 5.1, Eosinophils % 2.7, Basophils % 0.5, Absolute Granulocytes 5.6, Absolute Lymphocytes 1.7, Absolute Monocytes 0.4, Absolute Eosinophils 0.2, Absolute Basophils 0 07/21/17 0605: Anion Gap 11, Estimated GFR > 60, BUN/Creatinine Ratio 10.0, Magnesium 1.7, Total Bilirubin 1.0, Direct Bilirubin 0.2, AST 36, ALT 21, Alkaline Phosphatase 79, Creatine Kinase 867 H, Total Protein 6.5, Albumin 3.5 07/20/17 0429: Anion Gap 7, Estimated GFR > 60, Glucose 98, Calcium 8.5, Phosphorus 3.1, Magnesium 1.8, Total Bilirubin 0.8, AST 42 H, ALT 26, Creatine Kinase 1199 H, Albumin 3.3 L, CBC w Diff NO MAN DIFF REQ, RBC 4.12 L, MCV 90.4, MCH 30.2, MCHC 33.4, RDW 14.5, MPV 8.4, Gran % 78.3 H, Lymphocytes % 14.2 L, Monocytes % 6.7, Eosinophils % 0.5, Basophils % 0.3, Absolute Granulocytes 7.6 H, Absolute Lymphocytes 1.4, Absolute Monocytes 0.7 H, Absolute Eosinophils 0, Absolute Basophils 0 07/19/17 2010: Troponin I 0.04 07/19/17 1651: Lactic Acid Cancelled 07/19/17 1355: Lactic Acid 0.7, Troponin I 0.04, PT 11.3, INR 1.08, APTT 33 Microbiology 07/20 1039 LOWER RESP: Respiratory Culture - CAN Cancelled: SPECIMEN NOT RECEIVED IN LABORATORY 07/20 1039 LOWER RESP: Gram Stain - CAN Cancelled: SPECIMEN NOT RECEIVED IN LABORATORY 07/19 181 UPPER RESP: Surveillance Culture - COMP 07/19 181 GI: Surveillance Culture - COMP 07/19 1504 BLOOD: Blood Culture - RES 07/19 1452 BLOOD: Blood Culture - RES 07/19 1224 URINE ROUT: Urine Culture - CAN Cancelled: DUPLICATE - SEE [id number] Microbiology 07/20 103 LOWER RESP: Respiratory Culture - CAN Cancelled: SPECIMEN NOT RECEIVED IN LABORATORY 07/20 1039 LOWER RESP: Gram Stain - CAN Cancelled: SPECIMEN NOT RECEIVED IN LABORATORY 07/19 1815 UPPER RESP: Surveillance Culture - COMP 07/19 1815 GI: Surveillance Culture - COMP 07/19 1504 BLOOD: Blood Culture - RES 07/19 1452 BLOOD: Blood Culture - RES 07/19 1224 URINE ROUT: Urine Culture - CAN Cancelled: DUPLICATE - SEE [id number] Vital Signs Date Time Temp Pulse Resp B/P B/P Pulse O2 O2 Flow FiO2 Mean Ox Delivery Rate 07/22 0904 84 07/22 0904 94 Nasal 1.0L Cannula 07/22 0704 98.5 51 18 142/92 94 Nasal Cannula 07/22 0000 Nasal 1.0L Cannula 07/21 2216 98.0 60 20 120/70 96 07/21 2113 70 128/70 07/21 2112 68 128/70 07/21 1600 Nasal 1.0L Cannula 07/21 1414 97.8 62 18 150/90 98 Nasal 1.0L Cannula 07/21 1355 94 Nasal 1.0L Cannula
== END 2017-07-22 12:58 | DRG 816 ==
LOC: ERH 08:15 → 1NO 11:56 → ERHI 11:56 → CANRESERV 12:43 → ENRESERV 12:43 → ENTRNSPT 17:39 → EDTRNSPTSTS 17:45 → CRI 17:56 → CMPTRNSPT 18:24 → 1NO 07-20 21:54 → ENPENDDIS 07-22 10:45 → 1NO 07-22 12:58
PROVIDERS: Emergency Medicine; Internal Medicine Interventional Cardiology
DX: T40.5X1A Poisoning by cocaine, accidental (unintentional), initial encounter (principal); T40.4X1A Poisoning by other synthetic narcotics, accidental (unintentional), initial encounter; M79.7 Fibromyalgia; M19.90 Unspecified osteoarthritis, unspecified site; E03.9 Hypothyroidism, unspecified; F32.9 Major depressive disorder, single episode, unspecified; F41.9 Anxiety disorder, unspecified; T42.4X1A Poisoning by benzodiazepines, accidental (unintentional), initial encounter; J96.01 Acute respiratory failure with hypoxia; J69.0 Pneumonitis due to inhalation of food and vomit; E87.6 Hypokalemia; E05.00 Thyrotoxicosis with diffuse goiter without thyrotoxic crisis or storm; Z88.5 Allergy status to narcotic agent; Z79.82 Long term (current) use of aspirin; Z91.81 History of falling; D72.829 Elevated white blood cell count, unspecified; I73.9 Peripheral vascular disease, unspecified; K59.00 Constipation, unspecified; D64.9 Anemia, unspecified; F19.10 Other psychoactive substance abuse, uncomplicated; F10.10 Alcohol abuse, uncomplicated; G89.21 Chronic pain due to trauma; R68.0 Hypothermia, not associated with low environmental temperature
CPT/HCPCS: 1NSP; CCU; 36415; 36592; 71045; 73110-LT; 80307; 81001; 82436; 87040; 87070; 87086; 93005; 93010; 96361; 96374; 97166-GO; 99291; G0480; J0131; J1650; J2310; J7042